=== PATIENT | female | born 1985 | race Caucasian/White ===

== ENCOUNTER 2021-05-05 02:22 | Inpatient (IN) | payer OTHER ==
[~2021-05-05] VITALS: Ht 165.1 cm; Wt 113.6 kg
[~2021-05-05 02:22] MED LIST: HYDR-2214 PO; IBUP-1222 PO; PREN1TAB27 PO
[2021-05-05] MEDS ORDERED: NEWBORN KIT ONE (13:15)
[2021-05-05] MEDS ORDERED: MISOPROSTOL 200 MCG TABLET ONE (13:15)
[2021-05-05] MEDS ORDERED: LIDOCAINE 1%, 20ML ONE (13:15)
[2021-05-05 13:26] VITALS: BP 107/64
[2021-05-05] MEDS ORDERED: TERBUTALINE 1 MG/ML, 1ML SQ PRN (13:30)
[2021-05-05] MEDS ORDERED: TERBUTALINE 1 MG/ML, 1ML IVPush PRN (13:30)
[2021-05-05] MEDS ORDERED: FENTANYL PF 100 MCG/2ML IV PRN (13:30)
[2021-05-05] MEDS ORDERED: FENTANYL PF 100 MCG/2ML IVPush PRN (13:30)
[2021-05-05] MEDS ORDERED: OXYTOCIN 30U/ 0.9% NaCL 500ML 500 ML IV PRN (13:30)
[2021-05-05] MEDS ORDERED: OXYTOCIN 30U/ 0.9% NaCL 500ML 500 ML IV ONE (13:30)
[2021-05-05] MEDS ORDERED: D5%-LACTATED RINGERS 1,000 ML IV SCH (13:30)
[2021-05-05 13:34] LABS: BASOPHILS % (AUTO) 1 % (0-1); EOSINOPHILS % (AUTO) 1 % (1-7); LYMPHOCYTES % (AUTO) 15 % (22-44); MEAN CORPUSCULAR HEMOGLOBIN 28.9 pg (27.0-34.8); MEAN CORPUSCULAR HGB CONC 33.9 g/dL (32.4-35.8); MONOCYTES % (AUTO) 6 % (2-9); NEUTROPHILS % (AUTO) 77 % (42-75); PLATELET COUNT 151 x10^3/uL (130-400); RED CELL DISTRIBUTION WIDTH 15.8 % (9.6-15.2)
[2021-05-05] MEDS: LACTATED RINGERS 1,000 ML IV SCH ×2 (13:52→18:35)
[2021-05-05 14:00] VITALS: BP 107/69
[2021-05-05] MEDS ORDERED: LIDOCAINE/PF 1.5% EPI 1:200K, 10 ML ONE (16:33)
[2021-05-05] MEDS ORDERED: FENTANYL/BUPIV./NS/PF 250 ML EPIDCONT ONE (16:33)
[2021-05-05] MEDS ORDERED: LACTATED RINGERS 1,000 ML IVBOLUS PRN ×2 (18:00)
[2021-05-05] MEDS ORDERED: NALOXONE 0.4 MG/ML, 1ML IVPush PRN (18:00)
[2021-05-05] MEDS ORDERED: FENTANYL/BUPIV./NS/PF 250 ML EPIDCONT SCH ×2 (18:00)
[2021-05-05] MEDS ORDERED: LACTATED RINGERS 1,000 ML IV SCH ×2 (18:00)
[2021-05-05] MEDS ORDERED: EPHEDRINE 50 MG/ML, 1ML IVPush PRN ×2 (18:00)
[2021-05-06] MEDS ORDERED: IBUPROFEN 600 MG TABLET ONE (01:52)
[2021-05-06] MEDS ORDERED: HYDROcodone/APAP 5/325 TABLET PO PRN ×2 (02:00)
[2021-05-06] MEDS ORDERED: ONDANSETRON 2MG/ML, 2ML IV PRN (02:00)
[2021-05-06] MEDS ORDERED: OXYTOCIN 30U/ 0.9% NaCL 500ML 500 ML IV SCH (02:00)
[2021-05-06] MEDS ORDERED: CARBOPROST TROMETHAMINE 250 MCG/ML, 1ML IM PRN (02:00)
[2021-05-06] MEDS ORDERED: DOCUSATE 100 MG CAPSULE PO PRN (02:00)
[2021-05-06] MEDS ORDERED: METHYLERGONOVINE 0.2 MG/ML IM PRN (02:00)
[2021-05-06] MEDS ORDERED: RHOGAM FROM BLOOD BANK 1 NOTE EA IM/IV ONE (02:00)
[2021-05-06] MEDS ORDERED: SIMETHICONE 80 MG CHEW TAB PO PRN (02:00)
[2021-05-06] MEDS ORDERED: CALCIUM CARBONATE 500 MG TAB.CHEW PO PRN (02:00)
[2021-05-06] MEDS ORDERED: MISOPROSTOL 200 MCG TABLET PR PRN (02:00)
[2021-05-06] MEDS ORDERED: ACETAMINOPHEN 325 MG TABLET PO PRN (02:00)
[2021-05-06] MEDS: IBUPROFEN 600 MG TABLET PO PRN ×4 (02:02→21:06)
[2021-05-06 03:45] VITALS: BP 98/62
[2021-05-06 07:30] VITALS: BP 96/62
[2021-05-06] MEDS ORDERED: PRENATAL VIT/IRON/FA 1 EACH TABLET PO SCH (09:00)
[2021-05-06 09:28] LABS: BASOPHILS % (AUTO) 1 % (0-1); EOSINOPHILS % (AUTO) 1 % (1-7); LYMPHOCYTES % (AUTO) 11 % (22-44); MEAN CORPUSCULAR HEMOGLOBIN 29.2 pg (27.0-34.8); MEAN CORPUSCULAR HGB CONC 34.2 g/dL (32.4-35.8); MEAN PLATELET VOLUME 8.7 fL (7.4-10.4); MONOCYTES % (AUTO) 6 % (2-9); NEUTROPHILS % (AUTO) 83 % (42-75); PLATELET COUNT 146 x10^3/uL (130-400); RED BLOOD COUNT 3.11 x10^6/uL (3.82-5.3); RED CELL DISTRIBUTION WIDTH 15.7 % (9.6-15.2)
[2021-05-06 11:55] VITALS: BP 109/75
[2021-05-06 16:20] VITALS: BP 103/70
[2021-05-06 20:15] VITALS: BP 93/64
[2021-05-07 00:18] VITALS: BP 92/62
[2021-05-07] MEDS: IBUPROFEN 600 MG TABLET PO PRN (04:04)
[2021-05-07 06:31] VITALS: BP 107/70
[2021-05-07] MEDS ORDERED: IBUP-1222 PO (11:44)
== END 2021-05-07 13:15 | disposition home or self-care (01) | DRG 807 ==
LOC: LDIP 12:35 → 2NW 05-06 03:44
PROVIDERS: ADMIT Obstetrics & Gynecology; ATTEND Obstetrics & Gynecology
PROC: 10E0XZZ Delivery of Products of Conception, External Approach (ICD-10-PCS; principal; 2021-05-06)
PROC: 10907ZC Drainage of Amniotic Fluid, Therapeutic from Products of Conception, Via Natural or Artificial Opening (ICD-10-PCS; 2021-05-06)
PROC: 3E0R3BZ Introduction of Anesthetic Agent into Spinal Canal, Percutaneous Approach (ICD-10-PCS; 2021-05-06)
PROC: 00HU33Z Insertion of Infusion Device into Spinal Canal, Percutaneous Approach (ICD-10-PCS; 2021-05-06)
DX: O80 Encounter for full-term uncomplicated delivery (principal); Z37.0 Single live birth; Z3A.39 39 weeks gestation of pregnancy; Z20.822 Contact with and (suspected) exposure to COVID-19
CPT/HCPCS: 36415; 82962; 85025; 86592; 86850; 86870; 86900; 86922; 86923; 87635; G0378; J2590; J7120